=== PATIENT | female | born 1990 ===

== ENCOUNTER 2021-07-25 13:48 | Emergency (ER) | payer OTHER, SELFPAY ==
--- NOTE | ~2021-07-25 | XR_ITS ---
EXAMINATION: XR CHEST CLINICAL INFORMATION: Cough and wheezing COMPARISON: None TECHNIQUE: Frontal view of the chest was obtained. FINDINGS: No significant abnormality is noted involving the heart, lungs, mediastinum, bony thorax or soft tissues. XR/XR chest 1V IMPRESSION: Unremarkable chest examination.
[2021-07-25 14:17] VITALS: BP 121/70; PULSE 78; RESP 18; TEMP 36.8; O2SAT 98; BMI 21.4
--- NOTE | 2021-07-25 14:46 | ED.URI ---
HPI - URI/Sore Throat General Chief Complaint: Upper Respiratory Symptoms Stated Complaint: cough, chest wall pain, congestion Time Seen by Provider: 07/25/21 14:41 Source: patient Mode of arrival: ambulatory Limitations: no limitations History of Present Illness HPI Narrative: 31-year-old female with a past medical history of asthma here with complaints of runny nose, cough for 1 week. Patient tells me she is our primary care doctor yesterday and was prescribed a prednisone taper and Zyrtec. She tells me she took 1 dose of her prednisone this morning but felt like her symptoms were not improved as she came here today for further evaluation. She is not vaccinated for COVID. She has not had a test this week. She reports some chest wall pain with coughing. No shortness of breath, leg swelling or pain. No fevers, chills, abdominal pain, vomiting, diarrhea. Related Data Previous Rx's Medication Instructions Recorded azithromycin 250 mg tablet See Rx Instructions .ROUTE 07/25/21 .COMPLEX #6 tab Allergies Allergy/AdvReac Type Severity Reaction Status Date / Time shellfish derived Allergy Anaphylaxis Verified 07/25/21 14:21 Review of Systems Review of Systems: Yes all other systems are reviewed and are negative Constitutional: Constitutional: Reports no additional constitutional complaints, Denies body ache(s), Denies chills, Denies fever(s), Denies headache(s) and Denies weakness Eyes: Eyes: Reports no additional eye complaints and Denies change in vision ENT: Reports system reviewed and no additional complaints, except as documented, Denies dizziness, Denies headache(s), Denies nasal congestion, Reports nasal discharge and Denies neck pain Cardiovascular: Cardiovascular: Reports no additional cardiovascular complaints, Denies chest pain, Denies leg edema and Denies dyspnea Respiratory: Respiratory: Reports no additional respiratory complaints, Reports cough and Denies dyspnea Gastrointestinal: Gastrointestinal: Reports no additional gastrointestinal complaints, Denies abdominal pain, Denies diarrhea, Denies nausea and Denies vomiting Genitourinary: Genitourinary: Reports no additional female genitourinary complaints and Denies urinary incontinence Musculoskeletal: Musculoskeletal: Reports no additional musculoskeletal complaints, Denies back pain, Denies arthralgias, Denies joint swelling, Denies neck pain, Denies numbness and Denies tingling Integumentary/Breasts: Skin/Breast: Reports system reviewed and no additional complaints, except as docu and Denies rash Neurologic: Reports system reviewed and no additional complaints, except as documented, Denies Abnormal speech present, Denies dizziness, Denies headache(s), Denies numbness, Denies tingling and Denies weakness PMFSH Past Medical History Attestation statement: The following information was validated with the patient. Source: old records reviewed and nursing notes reviewed Social History Social History Advance Directives: No Physical Exam Vital Signs: Vital Signs: Last Vital Signs Temp 98.3 F 07/25/21 14:17 Pulse 78 07/25/21 14:17 Resp 18 07/25/21 14:17 BP 121/70 07/25/21 14:17 Pulse Ox 98 07/25/21 14:17 Body Mass Index 21.4 Const: General: cooperative, healthy appearing, comfortable and no acute distress Orientation/consciousness: patient oriented x3 Limitations: no limitations HENMT: Head: Yes normal to inspection Ears: hearing grossly normal bilaterally and TM's normal bilaterally General nose exam: Normal external nose present Face and sinus: Yes normal facial exam Mouth: Normal oral and palatal mucosa present Throat: Yes posterior oropharynx normal, Yes tonsils normal and Yes uvula midline Eyes: General: appearance normal, both eyes and all related structures Pupils: Equal, round and reactive pupils present Neck: Neck: Yes normal visual inspection Chest: Chest palpation & inspection: normal inspection of the chest Resp: Effort & Inspection: normal respiratory effort Auscultation: clear to auscultation bilaterally Cardio: Rate: regular rate Rhythm: regular rhythm Peripheral pulses: Peripheral pulses 2+ throughout GI: Inspection: Yes normal to inspection Palpation (GI): Soft to palpation and nontender Auscultation: normal bowel sounds Back/Spine/Pelvis: Thoracic/Lumbar Spine: thoracic and lumbar spine normal to inspection Skin: General skin exam: no rashes or lesions noted Neuro: General: patient oriented x3, no focal motor deficits and normal sensation to monofilament Cranial nerves: Yes Equal, round and reactive pupils present Cognition (Neuro): normal cognition Speech: No Abnormal speech present Gait exam (Neuro): Normal gait present Motor exam (neuro): 5/5 motor strength present throughout Extrem: General: Yes normal to inspection Course Course Course Narrative: URI symptoms x1 week. Patient well-appearing. Vital signs stable. WIll check COVID screen, CXR. 1530-COVID screen negative. Chest x-ray shows no acute finding. Patient tells me that she has had productive cough with green sputum for more than 1 week despite to using her inhaler and [id number] medications. Likely bronchitis. Will treat with course of antibiotics. Patient is on prednisone but just started this morning. Recommend she continue this. Reviewed worrisome signs and symptoms of when to return to the emergency department. Comfortable discharge home. MDM - URI/Sore Throat Medical Records Attestation: I reviewed the patient's medical records. Lab Data Attestation: I reviewed the patient's lab results. Labs: Lab Results 07/25/21 Range/Units 14:53 COVID-19 (LUDY) Negative (Negative) COVID-19 Clin Com See Note Imaging Data Chest x-ray: Attestation: I personally reviewed and interpreted this imaging study as follows: Radiologist's impression: [address] [address] XRay Report Signed Patient: Laxmi Hernandez MR#: [id number] : 1990 Acct:[id number] Age/Sex: 31 / F ADM Date: 07/25/21 Loc: .ED Attending Dr: Ordering Physician: Nina Flores NP Date of Service: 07/25/21 Procedure(s): XR chest 1V Accession Number(s): [id number] cc: Nina Flores NP~ EXAMINATION: XR CHEST CLINICAL INFORMATION: Cough and wheezing COMPARISON: None TECHNIQUE: Frontal view of the chest was obtained. FINDINGS: No significant abnormality is noted involving the heart, lungs, mediastinum, bony thorax or soft tissues. XR/XR chest 1V IMPRESSION: Unremarkable chest examination. ? Discharge Plan Discharge Clinical Impression: Bronchitis Patient Disposition: Home, Self-Care Instructions: Acute Bronchitis (ED) Additional Instructions: Continue your medications prescribed yesterday by her primary care doctor We are adding an antibiotic to this Increase fluids rest Continue inhaler at home as needed COVID test negative Prescriptions: New azithromycin 250 mg tablet See Rx Instructions .ROUTE .COMPLEX Qty: 6 RF: 0 Referrals: Physician,Unknown J [Primary Care Provider] - 2 days Stand Alone Forms: Work/School Release
[2021-07-25 15:19] LABS: IDNOW Serial# 9DD0AD1C
[2021-07-25 15:20] LABS: COVID-19 Test Negative (Negative)
== END 2021-07-25 15:33 | disposition home or self-care (01) ==
PROVIDERS: Nurse Practitioner Family; Emergency Provider Emergency Medicine Emergency Medical Services
DX: J40 Bronchitis, not specified as acute or chronic (principal); J45.909 Unspecified asthma, uncomplicated; Z20.822 Contact with and (suspected) exposure to COVID-19
CPT/HCPCS: 36415; 71045; 87635; 99283

== ENCOUNTER 2023-03-18 10:22 | Emergency (ER) | payer OTHER, SELFPAY ==
--- NOTE | ~2023-03-18 | XR_ITS ---
EXAMINATION: XR CHEST CLINICAL INFORMATION: Chest pain. COMPARISON: 07/25/2021 chest radiograph. TECHNIQUE: 2 views of the chest were obtained. FINDINGS: No significant abnormality is noted involving the heart, lungs, mediastinum, bony thorax or soft tissues. XR/XR chest 2V IMPRESSION: No acute cardiopulmonary process.
--- NOTE | ~2023-03-18 | US_ITS ---
EXAMINATION: US VENOUS ULTRASOUND WITH DOPPLER LOWER EXTREMITY, LEFT CLINICAL INFORMATION: Left leg pain. COMPARISON: None available. TECHNIQUE: Ultrasound of the deep veins is performed from the hip to the calf with compression sonography and color and pulse Doppler assessment. Spectral analysis with color-flow imaging is performed. FINDINGS: There is normal venous compression and respiratory variation and augmented flow. The visualized common femoral vein, superficial femoral vein, profunda femoral vein, popliteal vein, and the trifurcation region shows no evidence of deep venous thrombosis. No left popliteal cyst. The subcutaneous soft tissues are unremarkable. US/US venous duplex LE LT IMPRESSION: No evidence for deep venous thrombosis in the visualized veins of the left lower extremity.
[2023-03-18 11:13] VITALS: BP 127/82; PULSE 71; RESP 18; TEMP 36.7; O2SAT 100; BMI 37.8
--- NOTE | 2023-03-18 11:13 | ED_ITS ---
HPI - General Adult General Chief complaint: General Medical Stated complaint: l leg pain chest pain Time Seen by Provider: 03/18/23 13:58 History of Present Illness HPI narrative: Patient complains of short seconds long bursts of pain in the right chest wall that hurts when she touches it or moves certain ways, there is no accompanying shortness of breath, not related to exertion no nausea no vomiting no diaphoresis no radiation of pain She also complains of some left leg tingling and mild pain, there is no injury to the leg, the pain is in back of the leg, there is no back pain, no radiating pain she denies any redness or warmth, she has had no fevers No headache no neck pain no abdominal pain no nausea vomiting or diarrhea no swelling of the legs Related Data Previous Rx's Medication Instructions Recorded azithromycin 250 mg tablet See Rx Instructions PO .COMPLEX #6 07/25/21 tabs ibuprofen 600 mg tablet 600 mg PO Q6H PRN pain #20 tabs 03/18/23 prednisone 20 mg tablet 60 mg PO DAILY 3 days #9 tabs 03/18/23 Allergies Allergy/AdvReac Type Severity Reaction Status Date / Time shellfish derived Allergy Anaphylaxis Verified 07/25/21 14:21 [facility] Past Medical History Source: nursing notes reviewed Social History Social History Advance Directives: No Physical Exam ED Vital Signs: Vital Signs - 24 hr 03/18/23 11:13 03/18/23 14:24 Temperature 98.1 F 98.2 F Pulse Rate 71 66 Respiratory Rate 18 16 Blood Pressure 127/82 126/71 Pulse Oximetry 100 100 Oxygen Delivery Method Room Air BMI result Body Mass Index 37.8 General appearance is comfortable no acute distress Eyes no redness or discharge The pharynx is clear Neck is supple The chest is clear to auscultation bilateral full symmetric equal breath sounds Chest wall had very localized point tenderness to the right chest wall which reproduces the pain that she has been experienced, it can also be reproduced with movement The heart no murmur Abdomen soft nontender Extremities full range of motion x4 without tenderness swelling or deformity The left leg was normal in appearance, but there was tenderness to the calf and posterior thigh, the leg was normal color no evidence of cellulitis no redness no warmth no wound, neurovascular intact distal Other extremities normal Skin no rashes Neuro no focal motor sensory deficits Course Course Course Narrative: This is an RME: Additional HPI, ROS, PE not included below will be deferred to primary provider. This is a 53-gwpy-fdf-female, with a past medical history of asthma, with complaints of left leg pain and chest pain x 3 days. Reports bursts of sharp right sided chest pain that lasts for seconds and occurs at random. No palpit ations or shortness of breath. Was told she has plaque in her left leg at [facility] 3 months ago. No recent travels, hx of blood clots. Had kidney stone stent placement last month. Left calf nonedematous, but has mild tenderness to palpation. Also reproducible right sided chest wall tenderness. VSS, stable to return to the waiting room until treatment room becomes available. Plan: Labs, EKG, LE US, chest xray ordered. EKG was normal sinus rhythm with a rate of 64 with normal NC interval normal QRS duration normal QT, no acute ST changes Chest x-ray no acute pulmonary process Chemistry including a troponin was all negative troponin was under 2.7, no acute findings on CBC Ultrasound of left leg was negative Patient's presenting complaint of very localized right-sided chest wall pain and tenderness, pain is easily reproduced by pressing the area, the area is a very small area about 2 cm x 2 cm with focal tenderness but otherwise normal appearing skin there was no other tenderness in the chest wall there is no other pain that she describes she has no shortness of breath pain is not related to exertion, there is no pain with deep breath Tingling in her left leg is not accompanied by back pain or any radiating pain or any weakness or loss of sensation no change to bowel or bladder, may be from a pinched nerve so we are going to try prednisone, and she will take Motrin as needed for the chest wall pain Medications Administered Discontinued Medications Generic Name Dose Route Start Last Admin Trade Name Freq PRN Reason Stop Dose Admin Ibuprofen 600 mg 03/18/23 15:26 03/18/23 15:34 Ibuprofen 600 Mg Tablet PO 03/18/23 15:27 600 mg ONCE ONE Administration Prednisone 60 mg 03/18/23 15:26 03/18/23 15:34 Prednisone 20 Mg Tablet PO 03/18/23 15:27 60 mg ONCE ONE Administration Medical Decision Making Lab Data 03/18/23 11:36 03/18/23 11:36 Labs: Lab Results 03/18/23 03/18/23 03/18/23 Range/Units 11:36 11:36 11:36 WBC 10.3 (4.8-10.8) X10*3/uL RBC 4.59 (4.20-5.50) X10*6/uL Hgb 12.9 (12.0-16.0) g/dl Hct 40.3 (37.0-47.0) % MCV 87.8 (80.0-98.0) fL MCH 28.1 (27.0-33.0) pg MCHC 32.0 (31.0-35.0) g/dl RDW 13.1 (11.0-16.0) % Plt Count 290 (160-400) X10*3/uL MPV 10.4 (9.4-12.3) fL Immature Gran % (Auto) 0.5 H (0.0-0.4) % Neut % (Auto) 73.0 (45-73) % Lymph % (Auto) 19.7 L (20-40) % Carlton % (Auto) 4.4 (2-11) % Eos % (Auto) 2.0 (0-4) % Baso % (Auto) 0.4 (0-2) % Lymph # (Auto) 2.0 (1.2-4.9) X10*3/uL Carlton # (Auto) 0.5 (0.1-1.2) X10*3/uL Eos # (Auto) 0.2 (0.0-0.4) X10*3/uL Baso # (Auto) 0.0 (0.0-0.2) X10*3/uL Abs Immat Gran (auto) 0.05 H (0.00-0.03) X10*3/uL Absolute Neuts (auto) 7.5 (2.0-8.3) x10*3/uL Absolute Nucleated RBC 0.000 (0.0-0.012) X10*3/uL Nucleated RBC % (auto) 0.0 (0.0-0.2) /100WBC Sodium 138 (135-145) mmol/L Potassium 4.3 (3.3-5.1) mmol/L Chloride 106 (96-108) mmol/L Carbon Dioxide 26 (22-29) mmol/L Anion Gap 10 L (12-20) BUN 9 (9-16) mg/dL Creatinine 0.77 (0.5-1.4) mg/dL Estim Creat Clear Calc 122.7 Estimated GFR > 60 Random Glucose 97 (60-115) mg/dL Calcium 9.5 (8.4-10.2) mg/dL Magnesium 1.9 (1.6-2.6) mg/dL Total Bilirubin 0.4 (0.0-1.0) mg/dL Direct Bilirubin 0.1 (0.0-0.5) mg/dL AST 22 (5-31) U/L ALT 35 H (0-31) U/L Alkaline Phosphatase 75 (39-117) U/L Troponin I High Sens < 2.7 (<3.5-17.0) ng/L Total Protein 7.1 (6.5-8.0) g/dL Albumin 4.0 (3.5-5.0) g/dL Lipase 23 (8-78) U/L Discharge Plan Discharge Clinical Impression: Chest wall pain, Left leg pain Patient Disposition: Home, Self-Care Additional Instructions: The a sharp stinging pain that comes for a few seconds in a small area of the right side of her chest is not likely to be from her heart or lungs it does not appear to be dangerous or serious It is likely and inflammation of soft tissue or cartilage in the area Chest x-ray was normal, EKG was normal no sign of any heart attack Blood tests did not have any acute or worrisome findings Ultrasound of the left leg was normal As you are having some tingling in the leg as well as the discomfort we are trying prednisone with sometimes relieves inflammation around the nerve Follow with your doctor Return any time for shortness of breath, any change or worse chest pain any worse condition or any concerns Prescriptions: New ibuprofen 600 mg tablet 600 mg PO Q6H PRN (Reason: pain) Qty: 20 0RF prednisone 20 mg tablet 60 mg PO DAILY 3 Days Qty: 9 0RF No Action azithromycin 250 mg tablet See Rx Instructions .ROUTE .COMPLEX Qty: 6 0RF Rx Instructions: take 500 mg today (day 1), then 250 mg for 4 days (days 2-5) Stand Alone Forms: Work/School Release Interventions: ED Discharge Assessment Last Done: 03/18/23 15:37 Discharge Date/Time: 03/18/23 15:37
--- NOTE | 2023-03-18 11:20 | ECG_ITS ---
Test Reason : cp Blood Pressure : / mmHG Vent. Rate : 064 BPM Atrial Rate : 064 BPM P-R Int : 136 ms QRS Dur : 076 ms QT Int : 420 ms P-R-T Axes : 060 028 010 degrees QTc Int : 433 ms Normal sinus rhythm Normal ECG No previous ECGs available Referred By: Ondina Rose Electronically Signed By:ROWENA SHERIFF MD
[2023-03-18 11:41] LABS: MANUAL DIFF FLAG NO
[2023-03-18 11:44] LABS: Basophils Percent Auto 0.4 % (0-2); Eosinophils Absolute Auto 0.2 X10*3/uL (0.0-0.4); Hematocrit 40.3 % (37.0-47.0); Hemoglobin 12.9 g/dl (12.0-16.0); Imm Gran Abs Auto 0.05 X10*3/uL (0.00-0.03); Imm Gran Pct Auto 0.5 % (0.0-0.4); Lymphocytes Percent Auto 19.7 % (20-40); Mean Corpuscular Hemoglobin 28.1 pg (27.0-33.0); Mean Corpuscular Volume 87.8 fL (80.0-98.0); Mean Platelet Volume 10.4 fL (9.4-12.3); Monocytes Absolute Auto 0.5 X10*3/uL (0.1-1.2); Monocytes Percent Auto 4.4 % (2-11); Neutrophils Absolute Auto 7.5 x10*3/uL (2.0-8.3); Platelet Count 290 X10*3/uL (160-400); Red Blood Count 4.59 X10*6/uL (4.20-5.50); Red Cell Distribution Width 13.1 % (11.0-16.0); White Blood Count 10.3 X10*3/uL (4.8-10.8)
[2023-03-18 12:11] LABS: Alanine Aminotransferase 35 U/L (0-31); Alkaline Phosphatase 75 U/L (39-117); Anion Gap 10 (12-20); Aspartate Amino Transferase 22 U/L (5-31); Bilirubin Direct 0.1 mg/dL (0.0-0.5); Bilirubin Total 0.4 mg/dL (0.0-1.0); Blood Urea Nitrogen 9 mg/dL (9-16); Calcium 9.5 mg/dL (8.4-10.2); Carbon Dioxide 26 mmol/L (22-29); Chloride 106 mmol/L (96-108); Creatinine Clr Calc Pharmacy 122.7; Estimated Glomerular Filt Rate > 60; Glucose Random 97 mg/dL (60-115); Lipase 23 U/L (8-78); Magnesium 1.9 mg/dL (1.6-2.6); Potassium 4.3 mmol/L (3.3-5.1); Sodium 138 mmol/L (135-145); Total Protein 7.1 g/dL (6.5-8.0)
[2023-03-18 12:17] LABS: Troponin-I High Sensitivity < 2.7 ng/L (<3.5-17.0)
[2023-03-18 14:24] VITALS: BP 126/71; PULSE 66; RESP 16; TEMP 36.8; O2SAT 100
[2023-03-18] MEDS: Ibuprofen 600 MG TABLET PO (15:34)
[2023-03-18] MEDS: predniSONE 20 MG TABLET 60 MG PO (15:34)
== END 2023-03-18 15:37 | disposition home or self-care (01) ==
PROVIDERS: Physician Assistant Medical; Emergency Provider Emergency Medicine Emergency Medical Services
DX: M79.605 Pain in left leg (principal); R07.89 Other chest pain; R60.0 Localized edema; Z79.899 Other long term (current) drug therapy
CPT/HCPCS: 36415; 71046; 80048; 80076; 83690; 83735; 84484; 85025; 93005; 93971; 99284

== ENCOUNTER 2023-05-20 18:27 | Emergency (ER) | payer OTHER, SELFPAY ==
[2023-05-20 18:45] VITALS: BP 133/75; PULSE 80; RESP 16; TEMP 36; O2SAT 100; BMI 37.0
--- NOTE | 2023-05-20 18:45 | ED_ITS ---
HPI - General Adult General Chief complaint: Skin/Abscess/Foreign Body Stated complaint: insect bite Time Seen by Provider: 05/20/23 18:50 Source: patient Mode of arrival: ambulatory Limitations: no limitations History of Present Illness HPI narrative: Patient is a 32-year-old female presenting to the emergency department with complaint of pain and swelling under left upper arm since Wednesday morning. States symptoms have worsened since. Pain and erythema are extending down left arm. Denies spread of erythema proximally. Denies fevers. Has tried icing it with little relief. MD complaint: left arm pain Onset (ago): day(s) Location: left and upper extremity Radiation: distal Severity: moderate Quality: burning Pain Consistency: constant Relieving factors: none Exacerbating factors: none Associated symptoms: denies other symptoms Treatments prior to arrival: cold therapy Related Data Previous Rx's Medication Instructions Recorded azithromycin 250 mg tablet See Rx Instructions PO .COMPLEX #6 07/25/21 tabs ibuprofen 600 mg tablet 600 mg PO Q6H PRN pain #20 tabs 03/18/23 prednisone 20 mg tablet 60 mg PO DAILY 3 days #9 tabs 03/18/23 cephalexin 500 mg capsule 500 mg PO QID #28 caps 05/20/23 Allergies Allergy/AdvReac Type Severity Reaction Status Date / Time shellfish derived Allergy Anaphylaxis Verified 05/20/23 18:45 Review of Systems Review of Systems: As per HPI. Yes all other systems are reviewed and are negative Constitutional: Constitutional: Reports as per HPI [facility] Social History Social History Advance Directives: No Advance Directives Information Provided: No Physical Exam ED Vital Signs: Vital Signs - 24 hr 05/20/23 18:45 Temperature 96.8 F Pulse Rate 80 Respiratory Rate 16 Blood Pressure 133/75 Pulse Oximetry 100 Oxygen Delivery Method Room Air BMI result Body Mass Index 37.0 Vital signs have been reviewed and appear to be correct. Blood pressure normal. Heart rate normal. Respiratory rate normal. Temperature normal. Oxygen saturation normal. Const General: cooperative, healthy appearing and no acute distress Orientation/consciousness: oriented to person, oriented to place, oriented to time and patient oriented x3 Limitations: no limitations HENMT Head: Yes normocephalic and Yes atraumatic Ears: external ears normal General nose exam: Normal external nose present Face and sinus: Yes face symmetric Mouth: oropharynx normal and moist mucous membranes Throat: Yes uvula midline Eyes Pupils: Equal, round and reactive pupils present Neck Neck: Yes normal visual inspection and Yes supple Resp Effort & Inspection: normal respiratory effort and able to speak in complete sentences Auscultation: clear to auscultation bilaterally Cardio Rate: regular rate Rhythm: regular rhythm Heart sounds: S1 normal heart sound present and S2 normal heart sound present GI Palpation (GI): Soft to palpation and nontender Auscultation: normoactive bowel sounds General: Yes no CVA tenderness Back/Spine/Pelvis Back: no CVA tenderness Skin General skin exam: elasticity normal and turgor normal Neuro General: oriented to person, oriented to place, oriented to time, patient oriented x3, moves all extremities, no focal motor deficits and CN's II-XI intact bilaterally Cranial nerves: Yes Equal, round and reactive pupils present Cognition (Neuro): normal cognition Extrem General: Yes full ROM, Yes no pedal edema and Yes no calf tenderness Left upper extremity: full ROM, normal capillary refill and shoulder/upper arm Details: abnormal to inspection Details: other (erythema), tenderness (dorsal aspect of upper arm) Location: other, normal ROM and warmth (dorsal left upper arm) Shoulder/upper arm images: 1. Erythema and warmth, no fluctuance or induration Psych Mental Status: mental status grossly normal Affect: normal affect Thought process: Normal thought process present Medical Decision Making Medical Decision Making MDM Narrative: Patient is a 32-year-old female presenting to the emergency department with complaint of pain and swelling under left upper arm since Wednesday morning. On exam patient is awake, A+Ox3, VS WNL, afebrile, normal neurological exam without focal deficits, erythema and warmth to dorsal/medial aspect of left upper arm, no induration or fluctuance. Given reported symptoms and physical exam findings, initial differential includes cellulitis, abscess, insect bite. No bullae, rapid progression, pain out of proportion concerning for necrotizing fasciitis, unlikely DRESS, TEN/SJS. Physical exam findings not consistent with erythema migrans. Will treat with cephalexin at this time as patient denies history of MRSA, does not have risk factors for MRSA. Patient declined outlining of erythema, instructed patient to return if erythema spreads especially proximally, or if she develops worsening pain, swelling, or fever. Instructed patient to follow up with PCP. Patient verbalized understanding of and agreement with plan. Differential Diagnosis Differential Diagnoses: The differential diagnosis associated with the presentation includes As per MDM. Admission/Observation Consideration of admission/observation: Escalation of care including admission/observation considered External Record Review External record reviewed: Inpatient record, Office record and Outpatient record Prescription Management I considered prescription management with: Antibiotic (cephalexin) Discharge Plan Discharge Clinical Impression: Cellulitis Qualifiers: Site of cellulitis: extremity Site of cellulitis of extremity: upper extremity Laterality: left Qualified Code(s): L03.114 - Cellulitis of left upper limb Patient Disposition: Home, Self-Care Instructions: Cellulitis (DC), Warm Compress or Soak (ED) Additional Instructions: You have been evaluated in the emergency department today for skin infection, also known as cellulitis. You should assess the area daily for worsening redness, especially redness spreading towards your chest or back. You can soak your arm in warm water with Epsom salt several times daily or apply warm compresses. Please take your prescribed antibiotics as directed for the full course of the medication. You can use Tylenol or ibuprofen per package instructions every 6 hours as needed for pain. If necessary, you can alternate these medications so that you can take one medication every 3 hours. For instance, at noon take ibuprofen, then at 3:00 p.m. take Tylenol, then at 6:00 p.m. take ibuprofen. Please schedule an appointment for follow-up with your primary care physician as soon as possible. Return to the emergency department if you experience recurrent vomiting, fevers greater than 100.4? F, increasing area of redness, warmth around the area, foul-smelling discharge from the area, increased tenderness around the area, or any other concerning symptoms. Prescriptions: New cephalexin 500 mg capsule 500 mg PO QID Qty: 28 0RF No Action azithromycin 250 mg tablet See Rx Instructions .ROUTE .COMPLEX Qty: 6 0RF Rx Instructions: take 500 mg today (day 1), then 250 mg for 4 days (days 2-5) ibuprofen 600 mg tablet 600 mg PO Q6H PRN (Reason: pain) Qty: 20 0RF prednisone 20 mg tablet 60 mg PO DAILY 3 Days Qty: 9 0RF
== END 2023-05-20 19:05 | disposition home or self-care (01) ==
PROVIDERS: Emergency Provider Internal Medicine
DX: L03.114 Cellulitis of left upper limb (principal)
CPT/HCPCS: 99282; 99283

== ENCOUNTER 2023-07-19 06:31 | Emergency (ER) | payer OTHER, SELFPAY ==
--- NOTE | 2023-07-19 | ECG_ITS ---
Test Reason : CHEST PAIN Blood Pressure : / mmHG Vent. Rate : 058 BPM Atrial Rate : 058 BPM P-R Int : 144 ms QRS Dur : 072 ms QT Int : 430 ms P-R-T Axes : 054 024 -02 degrees QTc Int : 422 ms Sinus bradycardia Otherwise normal ECG When compared with ECG of 18-MAR-2023 11:28, No significant change was found Referred By: Generic ED Physician Electronically Signed By:KELLIE JORDAN
--- NOTE | ~2023-07-19 | XR_ITS ---
EXAMINATION: XR LUMBOSACRAL SPINE CLINICAL INFORMATION: Low back pain. COMPARISON: None available. TECHNIQUE: Three views of the lumbosacral spine. FINDINGS: There are 5 nonrib-bearing lumbar vertebral bodies. Relative straightening of the lumbar lordosis on the sagittal view. There is 2 mm retrolisthesis of L5 on S1. Vertebral body heights and intervertebral disc spaces are maintained. Sacroiliac joints are intact. XR/XR lumbar spine 2-3V IMPRESSION: No acute abnormality.
[2023-07-19 06:41] VITALS: BP 126/70; PULSE 59; RESP 16; TEMP 36.7; O2SAT 98; BMI 37.7
[2023-07-19 07:30] VITALS: BP 108/65; PULSE 67; RESP 17; TEMP 37.2; O2SAT 99
[2023-07-19 07:42] LABS: MANUAL DIFF FLAG NO
[2023-07-19 07:44] LABS: Basophils Percent Auto 0.4 % (0-2); Eosinophils Absolute Auto 0.2 X10*3/uL (0.0-0.4); Eosinophils Percent Auto 2.1 % (0-4); Hematocrit 41.1 % (37.0-47.0); Hemoglobin 13.4 g/dl (12.0-16.0); Imm Gran Abs Auto 0.02 X10*3/uL (0.00-0.03); Imm Gran Pct Auto 0.2 % (0.0-0.4); Lymphocytes Absolute Auto 2.2 X10*3/uL (1.2-4.9); Lymphocytes Percent Auto 22.7 % (20-40); Mean Corpuscular HGB Conc 32.6 g/dl (31.0-35.0); Mean Corpuscular Hemoglobin 28.7 pg (27.0-33.0); Mean Platelet Volume 10.8 fL (9.4-12.3); Monocytes Absolute Auto 0.5 X10*3/uL (0.1-1.2); Monocytes Percent Auto 4.7 % (2-11); Neutrophils Absolute Auto 6.8 x10*3/uL (2.0-8.3); Neutrophils Percent Auto 69.9 % (45-73); Platelet Count 261 X10*3/uL (160-400); Red Blood Count 4.67 X10*6/uL (4.20-5.50); Red Cell Distribution Width 12.7 % (11.0-16.0); White Blood Count 9.7 X10*3/uL (4.8-10.8)
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
[2023-07-19 07:58] LABS: Alanine Aminotransferase 21 U/L (0-31); Albumin Level 4.1 g/dL (3.5-5.0); Alkaline Phosphatase 66 U/L (39-117); Anion Gap 9 (12-20); Aspartate Amino Transferase 17 U/L (5-31); Bilirubin Direct 0.1 mg/dL (0.0-0.5); Bilirubin Total 0.3 mg/dL (0.0-1.0); Blood Urea Nitrogen 16 mg/dL (9-16); Calcium 9.5 mg/dL (8.4-10.2); Carbon Dioxide 25 mmol/L (22-29); Chloride 109 mmol/L (96-108); Creatinine Clr Calc Pharmacy 103.9; Estimated Glomerular Filt Rate > 60; Glucose Random 91 mg/dL (60-115); Lipase 34 U/L (8-78); Potassium 4.4 mmol/L (3.3-5.1); Sodium 139 mmol/L (135-145); Total Protein 7.3 g/dL (6.5-8.0)
[2023-07-19 08:06] LABS: Troponin-I High Sensitivity < 2.7 ng/L (<3.5-17.0)
[2023-07-19] MEDS: Ondansetron ODT 4 MG TAB.RAPDIS TRANSLINGU (08:40)
[2023-07-19] MEDS: Cyclobenzaprine HCl 10 MG TABLET PO (08:40)
[2023-07-19] MEDS: PHENobarb/Hyoscy/Atropine/Scop 10 ML ELIXIR PO (08:40)
[2023-07-19] MEDS: Magnesium Hydrox/Alum Hydrox 30 ML ORAL.SUSP PO (08:40)
[2023-07-19] MEDS: Ketorolac Tromethamine 30 MG/ML VIAL IM (08:40)
[2023-07-19 08:43] VITALS: PULSE 64; RESP 19
[2023-07-19 09:18] LABS: Appearance Urine Clear; Color Urine Yellow; Glucose Urine UA Negative (Negative); Leukocyte Esterase Urine Trace (Negative); Nitrite Urine Negative (Negative); Specific Gravity - Urine 1.015 (1.005-1.025); UMIC TRIGGER UACC YES; Urine Blood Negative (Negative); Urine Ketones Negative (Negative); Urine Protein Negative (Neg-Trace)
[2023-07-19 09:21] LABS: Bacteria Urine Trace (None Seen); Hyaline Casts Urine 0-2 /LPF (0-2); RBC Urine 0-2 /HPF (0-2); UPreg QC Valid YES; Urine Pregnancy NEGATIVE (NEGATIVE); WBC Urine 0-5 /HPF (0-5)
[2023-07-19 09:29] LABS: Magnesium 2.1 mg/dL (1.6-2.6)
[2023-07-19 09:33] LABS: Prothrombin Time 12.2 SEC (11.1-13.3)
[2023-07-19 09:37] LABS: HCG Quantitative < 2 mIU/mL
[2023-07-19 09:56] LABS: D Dimer High Sensitivity < 150 NG/ML
== END 2023-07-19 10:59 | disposition home or self-care (01) ==
PROVIDERS: Physician Assistant Medical; Emergency Provider Emergency Medicine
DX: R07.89 Other chest pain (principal); M94.0 Chondrocostal junction syndrome [Tietze]; M54.50 Low back pain, unspecified; R06.02 Shortness of breath; R10.9 Unspecified abdominal pain; Z79.899 Other long term (current) drug therapy
CPT/HCPCS: 36415; 72100; 80048; 80076; 81001; 81025; 83690; 83735; 84484; 84702; 85025; 85379; 85610; 93005; 96372; 99284; J1885

== ENCOUNTER 2023-08-11 20:02 | Emergency (ER) | payer OTHER, SELFPAY ==
--- NOTE | ~2023-08-11 | XR_ITS ---
EXAMINATION: XR SHOULDER, LEFT CLINICAL INFORMATION: Shoulder pain COMPARISON: None available. TECHNIQUE: AP external rotation, Grashey, scapular Y, and axillary views of the left shoulder. FINDINGS: The bones and soft tissues are normal. No fracture. Glenohumeral and acromioclavicular alignment is anatomic with normal joint space. No abnormal soft tissue calcifications. XR/XR shoulder LT min 2V IMPRESSION: Unremarkable left shoulder exam.
[2023-08-11 20:27] VITALS: BP 127/65; PULSE 68; RESP 20; TEMP 37.1; O2SAT 98; BMI 37.8
--- NOTE | 2023-08-11 20:29 | ECG_ITS ---
Test Reason : SHOULDER PAIN Blood Pressure : / mmHG Vent. Rate : 064 BPM Atrial Rate : 064 BPM P-R Int : 134 ms QRS Dur : 088 ms QT Int : 434 ms P-R-T Axes : 031 023 004 degrees QTc Int : 447 ms Normal sinus rhythm Normal ECG When compared with ECG of 19-JUL-2023 06:36, No significant change was found Referred By: Aly Msoeley Electronically Signed By:JOS GARCIA MD
--- NOTE | 2023-08-11 20:35 | ED.GENADULT ---
HPI - General Adult General Chief complaint: Extremity Problem Stated complaint: left shoulder and arm pain x2 wks Time Seen by Provider: 08/12/23 00:12 Source: patient Mode of arrival: ambulatory Limitations: no limitations History of Present Illness HPI narrative: Patient complaining of left shoulder pain for last few days getting worse especially on lifting left arm above the head no known trauma also feeling some tingling numbness feeling in left forearm off and on no neck pain does have a history of carpal tunnel in both wrists Related Data Previous Rx's Medication Instructions Recorded azithromycin 250 mg tablet See Rx Instructions PO .COMPLEX #6 07/25/21 tabs ibuprofen 600 mg tablet 600 mg PO Q6H PRN pain #20 tabs 03/18/23 prednisone 20 mg tablet 60 mg (3 x 20 mg) PO DAILY 3 days 03/18/23 #9 tabs cephalexin 500 mg capsule 500 mg PO QID #28 caps 05/20/23 cyclobenzaprine 10 mg tablet 10 mg PO BEDTIME PRN muscle spasm 07/19/23 #10 tabs ketorolac 10 mg tablet 10 mg PO Q8H 5 days #15 tabs 07/19/23 lidocaine 5 % topical patch 1 patch topical DAILY #15 ea 07/19/23 (Lidoderm) cyclobenzaprine 10 mg tablet 10 mg PO Q8H #20 tabs 08/12/23 ibuprofen 600 mg tablet 600 mg PO Q6H PRN fever or pain 08/12/23 #30 tabs Allergies Allergy/AdvReac Type Severity Reaction Status Date / Time shellfish derived Allergy Anaphylaxis Verified 08/11/23 20:16 Review of Systems Review of Systems: Yes all other systems are reviewed and are negative [facility] Social History Social History Smoked in Last 30 Days: No Use of substances other than those prescribed or required for medical reasons: No Advance Directives: No Advance Directives Information Provided: Yes Patient : No Physical Exam ED Vital Signs: Vital Signs - 24 hr 08/11/23 20:27 08/11/23 22:55 Temperature 98.7 F Pulse Rate 68 66 Respiratory Rate 20 18 Blood Pressure 127/65 133/67 Pulse Oximetry 98 100 Oxygen Delivery Method Room Air Room Air BMI result Body Mass Index 37.8 Extrem Shoulder/upper arm images: 1. Tenderness left subacromial, increased pain on lifting left arm above 90 degrees no weakness neurovascular intact good range of movement Course Course Course Narrative: RME: 33 yold female presents to ED for left shoulder pain and arm pain for the past two weeks and hurts on movemeent. patient denies trauma. labs and EkG and shoulder xray ordered Medications Administered Discontinued Medications Generic Name Dose Route Start Last Admin Trade Name Yunior PRN Reason Stop Dose Admin Cyclobenzaprine HCl 10 mg 08/12/23 00:30 08/12/23 00:41 Cyclobenzaprine Hcl 10 Mg Tablet PO 08/12/23 00:31 Not Given ONCE ONE Tramadol HCl 50 mg 08/12/23 00:30 08/12/23 00:40 Tramadol Hcl 50 Mg Tablet PO 08/12/23 00:31 50 mg ONCE ONE Administration Medical Decision Making Medical Decision Making [facility] Narrative: Patient clinical left rotator cuff tendinitis x-ray negative for any fracture neurovascular intact discharge patient home on pain management and muscle relaxation Lab Data [facility] Lab Attestation statement: I reviewed the patient's lab results. 08/11/23 21:39 08/11/23 21:39 Labs: Lab Results 08/11/23 Range/Units 21:39 WBC 10.2 (4.8-10.8) X10*3/uL RBC 4.57 (4.20-5.50) X10*6/uL Hgb 13.0 (12.0-16.0) g/dl Hct 40.3 (37.0-47.0) % MCV 88.2 (80.0-98.0) fL MCH 28.4 (27.0-33.0) pg MCHC 32.3 (31.0-35.0) g/dl RDW 13.1 (11.0-16.0) % Plt Count 271 (160-400) X10*3/uL MPV 10.7 (9.4-12.3) fL Immature Gran % (Auto) 0.3 (0.0-0.4) % Neut % (Auto) 58.9 (45-73) % Lymph % (Auto) 32.1 (20-40) % [place] % (Auto) 5.8 (2-11) % Eos % (Auto) 2.5 (0-4) % Baso % (Auto) 0.4 (0-2) % Lymph # (Auto) 3.3 (1.2-4.9) X10*3/uL [place] # (Auto) 0.6 (0.1-1.2) X10*3/uL Eos # (Auto) 0.3 (0.0-0.4) X10*3/uL Baso # (Auto) 0.0 (0.0-0.2) X10*3/uL Abs Immat Gran (auto) 0.03 (0.00-0.03) X10*3/uL Absolute Neuts (auto) 6.0 (2.0-8.3) x10*3/uL Absolute Nucleated RBC 0.000 (0.0-0.012) X10*3/uL Nucleated RBC % (auto) 0.0 (0.0-0.2) /100WBC Sodium 140 (135-145) mmol/L Potassium 4.2 (3.3-5.1) mmol/L Chloride 106 (96-108) mmol/L Carbon Dioxide 26 (22-29) mmol/L Anion Gap 12 (12-20) BUN 10 (9-16) mg/dL Creatinine 0.79 (0.5-1.4) mg/dL Estim Creat Clear Calc 118.4 Estimated GFR > 60 Random Glucose 125 H (60-115) mg/dL Calcium 9.3 (8.4-10.2) mg/dL Total Bilirubin 0.2 (0.0-1.0) mg/dL AST 24 (5-31) U/L ALT 42 H (0-31) U/L Alkaline Phosphatase 69 (39-117) U/L Troponin I High Sens < 2.7 (<3.5-17.0) ng/L Total Protein 7.4 (6.5-8.0) g/dL Albumin 4.1 (3.5-5.0) g/dL Discharge Plan Discharge Clinical Impression: Tendinitis of left rotator cuff Patient Disposition: Home, Self-Care Instructions: Rotator Cuff Tendinitis (ED) Additional Instructions: Rest to your left shoulder Pain medication and muscle relaxant as prescribed Prescriptions: New cyclobenzaprine 10 mg tablet 10 mg PO Q8H Qty: 20 0RF ibuprofen 600 mg tablet 600 mg PO Q6H PRN (Reason: fever or pain) Qty: 30 0RF No Action azithromycin 250 mg tablet See Rx Instructions .ROUTE .COMPLEX Qty: 6 0RF Rx Instructions: take 500 mg today (day 1), then 250 mg for 4 days (days 2-5) cephalexin 500 mg capsule 500 mg PO QID Qty: 28 0RF ibuprofen 600 mg tablet 600 mg PO Q6H PRN (Reason: pain) Qty: 20 0RF prednisone 20 mg tablet 60 mg PO DAILY 3 Days Qty: 9 0RF lidocaine [Lidoderm] 5 % adhesive patch,medicated 1 patch topical DAILY Qty: 15 0RF Rx Instructions: leave on most painful area for up to 12 hrs cyclobenzaprine 10 mg tablet 10 mg PO BEDTIME PRN (Reason: muscle spasm) Qty: 10 0RF ketorolac 10 mg tablet 10 mg PO Q8H 5 Days Qty: 15 0RF Interventions: ED Discharge Assessment Last Done: 08/12/23 00:45 Discharge Date/Time: 08/12/23 00:45
[2023-08-11 21:47] LABS: MANUAL DIFF FLAG NO
[2023-08-11 21:48] LABS: Basophils Percent Auto 0.4 % (0-2); Eosinophils Absolute Auto 0.3 X10*3/uL (0.0-0.4); Eosinophils Percent Auto 2.5 % (0-4); Hematocrit 40.3 % (37.0-47.0); Imm Gran Abs Auto 0.03 X10*3/uL (0.00-0.03); Imm Gran Pct Auto 0.3 % (0.0-0.4); Lymphocytes Absolute Auto 3.3 X10*3/uL (1.2-4.9); Lymphocytes Percent Auto 32.1 % (20-40); Mean Corpuscular HGB Conc 32.3 g/dl (31.0-35.0); Mean Corpuscular Hemoglobin 28.4 pg (27.0-33.0); Mean Corpuscular Volume 88.2 fL (80.0-98.0); Mean Platelet Volume 10.7 fL (9.4-12.3); Monocytes Absolute Auto 0.6 X10*3/uL (0.1-1.2); Monocytes Percent Auto 5.8 % (2-11); Neutrophils Percent Auto 58.9 % (45-73); Platelet Count 271 X10*3/uL (160-400); Red Blood Count 4.57 X10*6/uL (4.20-5.50); Red Cell Distribution Width 13.1 % (11.0-16.0); White Blood Count 10.2 X10*3/uL (4.8-10.8)
[2023-08-11 22:55] VITALS: BP 133/67; PULSE 66; RESP 18; O2SAT 100
[2023-08-11 23:25] LABS: Alanine Aminotransferase 42 U/L (0-31); Albumin Level 4.1 g/dL (3.5-5.0); Alkaline Phosphatase 69 U/L (39-117); Anion Gap 12 (12-20); Aspartate Amino Transferase 24 U/L (5-31); Bilirubin Total 0.2 mg/dL (0.0-1.0); Blood Urea Nitrogen 10 mg/dL (9-16); Calcium 9.3 mg/dL (8.4-10.2); Carbon Dioxide 26 mmol/L (22-29); Chloride 106 mmol/L (96-108); Creatinine Clr Calc Pharmacy 118.4; Estimated Glomerular Filt Rate > 60; Glucose Random 125 mg/dL (60-115); Potassium 4.2 mmol/L (3.3-5.1); Sodium 140 mmol/L (135-145); Total Protein 7.4 g/dL (6.5-8.0); Troponin-I High Sensitivity < 2.7 ng/L (<3.5-17.0)
[2023-08-12] MEDS: traMADoL HCL 50 MG TABLET PO (00:40)
== END 2023-08-12 00:45 | disposition home or self-care (01) ==
PROVIDERS: Physician Assistant; Emergency Provider Internal Medicine
DX: M75.92 Shoulder lesion, unspecified, left shoulder (principal); M25.512 Pain in left shoulder
CPT/HCPCS: 36415; 73030; 80053; 84484; 85025; 93005; 99283; 99284

== ENCOUNTER 2023-11-18 07:43 | Emergency (ER) | payer OTHER, SELFPAY ==
--- NOTE | ~2023-11-18 | US_ITS ---
EXAMINATION: US ABDOMEN LIMITED CLINICAL INFORMATION: Right upper quadrant pain. COMPARISON: None available. TECHNIQUE: Real-time imaging of the right upper quadrant abdominal viscera. Needs examination is limited secondary to overlying bowel gas. FINDINGS: PANCREAS: Visualized portions of pancreas are normal in appearance. LIVER: The liver is normal in size. The liver contour is normal. Liver echogenicity is increased diffusely. Some areas of decreased echogenicity adjacent to the gallbladder are nonspecific but most suggestive of regions of focal fatty sparing. There is no intrahepatic biliary duct dilatation seen. GALLBLADDER: The gallbladder is physiologically distended without evidence of stones, sludge, polyps, wall thickening or pericholecystic fluid. Technologist however reports a positive sonographic Peterson's sign. COMMON BILE DUCT: Normal in caliber measuring 0.3 cm in diameter. RIGHT KIDNEY: Normal. No hydronephrosis. No renal calculi or focal parenchymal lesions. The kidney measures 10.8 cm in maximum dimension. FREE FLUID: None. US/US abdomen limited IMPRESSION: 1. Diffusely increased liver echogenicity. This is a nonspecific finding but most suggestive of hepatic steatosis. Correlation with liver enzymes recommended. 2. The gallbladder is normal in appearance without gallstones, however, the technologist reports a positive sonographic Peterson's sign. Clinical correlation recommended.
--- NOTE | ~2023-11-18 | XR_ITS ---
EXAMINATION: XR CHEST CLINICAL INFORMATION: Chest pain COMPARISON: Chest x-ray March 18, 2023 TECHNIQUE: 2 views of the chest were obtained. FINDINGS: Cardiac silhouette is normal in size. The lungs are well aerated. There is no lobar consolidation. No pleural effusion or pneumothorax. No acute osseous abnormality. XR/XR chest 2V IMPRESSION: No acute pulmonary pathology.
[2023-11-18 07:47] VITALS: BP 129/62; PULSE 69; RESP 18; TEMP 36.9; O2SAT 95; BMI 37.8
--- NOTE | 2023-11-18 09:25 | ECG_ITS ---
Test Reason : chest pain Blood Pressure : / mmHG Vent. Rate : 063 BPM Atrial Rate : 063 BPM P-R Int : 130 ms QRS Dur : 074 ms QT Int : 428 ms P-R-T Axes : 024 017 -01 degrees QTc Int : 437 ms Normal sinus rhythm Normal ECG When compared to the previous EKG of No significant changes seen Referred By: Ondina Rose Electronically Signed By:ROWENA SHERIFF MD
--- NOTE | 2023-11-18 09:25 | ED.GENADULT ---
HPI - General Adult General Chief complaint: General Medical Stated complaint: Acid reflux Time Seen by Provider: 11/18/23 09:01 Source: patient and RN notes reviewed Mode of arrival: ambulatory Limitations: no limitations History of Present Illness HPI narrative: This is a 33-year-old female, with a past medical history of GERD, nephrolithiasis, and PCOS, presenting to the emergency department with complaints of ?severe acid reflux x2 days. Patient reports that over the last 2 days she has had constant burning sensation in her chest. She states that she has a history of acid reflux and this feels similar. She states that this is the most severe acid reflux she has had. She states that the pain has woken her up in the middle of the night. She has been taking omeprazole, which she took a week off from without any relief. She also has tried [id number] antacids which has not provided her with any relief. She denies any fevers, chills, nausea, vomiting or diarrhea. She also endorses diffuse abdominal pain, worse in the epigastrium. Patient also reports that she has urinary frequency, states that several days ago she had leftover antibiotics which she was taking, so reporting urinary urgency. Denies dysuria, hematuria. MD complaint: Acid reflux Onset (ago): day(s) Quality: burning Pain Consistency: constant Relieving factors: none Exacerbating factors: none Associated symptoms: denies other symptoms Treatments prior to arrival: none Related Data Previous Rx's Medication Instructions Recorded azithromycin 250 mg tablet See Rx Instructions PO .COMPLEX #6 07/25/21 tabs ibuprofen 600 mg tablet 600 mg PO Q6H PRN pain #20 tabs 03/18/23 prednisone 20 mg tablet 60 mg (3 x 20 mg) PO DAILY 3 days 03/18/23 #9 tabs cephalexin 500 mg capsule 500 mg PO QID #28 caps 05/20/23 cyclobenzaprine 10 mg tablet 10 mg PO BEDTIME PRN muscle spasm 07/19/23 #10 tabs ketorolac 10 mg tablet 10 mg PO Q8H 5 days #15 tabs 07/19/23 lidocaine 5 % topical patch 1 patch topical DAILY #15 ea 07/19/23 (Lidoderm) cyclobenzaprine 10 mg tablet 10 mg PO Q8H #20 tabs 08/12/23 ibuprofen 600 mg tablet 600 mg PO Q6H PRN fever or pain 08/12/23 #30 tabs aluminum-mag hydroxide-simethicone 10 ml PO QID PRN indigestion 11/18/23 200 mg-200 mg-20 mg/5 mL oral susp #3,000 mL (Maalox Advanced) Allergies Allergy/AdvReac Type Severity Reaction Status Date / Time shellfish derived Allergy Anaphylaxis Verified 08/11/23 20:16 Review of Systems Review of Systems: Yes all other systems are reviewed and are negative Constitutional: Constitutional: Reports as per HPI Physical Exam ED Vital Signs: Vital Signs - 24 hr 11/18/23 07:47 11/18/23 10:00 11/18/23 14:36 Temperature 98.4 F 98.2 F Pulse Rate 69 60 73 Respiratory Rate 18 16 18 Blood Pressure 129/62 119/75 122/71 Pulse Oximetry 95 99 Oxygen Delivery Method Room Air Room Air BMI result Body Mass Index 37.8 Const General: cooperative, comfortable and no acute distress Orientation/consciousness: patient oriented x3 Limitations: no limitations HENMT Head: Yes normal to inspection, Yes normocephalic and Yes atraumatic Ears: hearing grossly normal bilaterally General nose exam: Normal external nose present Face and sinus: Yes normal facial exam Mouth: Normal oral and palatal mucosa present, oropharynx normal and moist mucous membranes Throat: Yes posterior oropharynx normal Eyes General: appearance normal, both eyes and all related structures Eyelids: Yes eyelids normal Conjunctivae: conjunctivae normal Sclerae: sclerae normal Pupils: Equal, round and reactive pupils present EOM: EOMs intact bilaterally Neck Neck: Yes normal visual inspection, Yes full ROM and Yes no lymphadenopathy Lymphatic: no lymphadenopathy noted Chest Chest palpation & inspection: normal inspection of the chest Resp Effort & Inspection: normal respiratory effort and able to speak in complete sentences Auscultation: clear to auscultation bilaterally, no crackles, no rales, no rhonchi and no wheezes Cardio Rate: regular rate Rhythm: regular rhythm Heart sounds: S1 normal heart sound present and S2 normal heart sound present GI Other: Abdomen is diffusely tender, worse in the epigastrium. No right upper quadrant pain, negative Peterson's sign Inspection: Yes normal to inspection Skin General skin exam: no rashes or lesions noted Trauma: no lacerations or abrasions Wounds: no wounds Neuro General: patient oriented x3 and moves all extremities Cranial nerves: Yes Equal, round and reactive pupils present Extrem General: Yes normal to inspection Right upper extremity: normal to inspection Left upper extremity: normal to inspection Right lower extremity: normal to inspection Left lower extremity: normal to inspection Course Reevaluation(s) Reevaluation #1: Chest x-ray unremarkable. No leukocytosis, stable H&H. Chemistry within normal limits. ALT slightly elevated at 38, otherwise unremarkable. Creatinine 0.75, no evidence of BRO as this is around her baseline. Urine appears to be normal, no evidence of infection. First troponin 2.7, does not require repeat as patient reports pain is constant over the last 2 days. Lipase within normal limits. Pending ultrasound of the right upper quadrant Time: 12:59 Reevaluation #2: US returns normal but renal dialysis technician observed a positive peterson's sign. This was not seen on my examination and pt's abdominal pain has resolved. Unlikely gall bladder etiology. D/c with return precautions. stable for d.c, Medications Administered Discontinued Medications Generic Name Dose Route Start Last Admin Trade Name Yunior PRN Reason Stop Dose Admin Acetaminophen 975 mg 11/18/23 14:45 11/18/23 15:10 Acetaminophen 325 Mg Tablet PO 11/18/23 14:46 975 mg ONCE ONE Administration Al Hydroxide/Mg Hydroxide 30 ml 11/18/23 09:25 11/18/23 10:27 Magnesium Hydrox/Alum Hydrox 30 Ml Oral.Susp PO 11/18/23 09:26 30 ml ONCE ONE Administration Belladonna Alkaloids/Phenobarbital 10 ml 11/18/23 09:25 11/18/23 10:27 Phenobarb/Hyoscy/Atropine/Scop 10 Ml Elixir PO 11/18/23 09:26 10 ml ONCE ONE Administration Lidocaine HCl 15 ml 11/18/23 09:25 11/18/23 10:27 Lidocaine Hcl Viscous 2 % 15 Ml Solution MUCOUS MEM 11/18/23 09:26 15 ml ONCE ONE Administration Medical Decision Making Medical Decision Making [facility] Narrative: This is a 33-year-old female presenting to the emergency department with complaints of worsening acid reflux x2 days. Patient admits that she has not been taking her omeprazole, she started taking this on Wednesday gone after having worsening acid. She has been using hemu-eih-dymabvz antacids without any relief. On arrival, patient is nontoxic appearing, vital signs within normal limits. Patient endorsing chest pain as well as pain. She has a GI specialist, last had endoscopy in September which was unremarkable per patient. Differential diagnoses include gastritis, GERD, ACS-unlikely, urinary tract infection. Been patient is symptomatic at this time, will attempt GI cocktail to see if this provides her with any relief. Ultrasound of the abdomen is also warranted given upper abdominal pain, to rule out any gallbladder etiology. She denies any shortness a breath, patient is PERC negative therefore PE is unlikely. Differential Diagnosis Differential Diagnoses: The differential diagnosis associated with the presentation includes See above Lab Data MDM Lab Attestation statement: I reviewed the patient's lab results. No leukocytosis, H&H stable,Chem WNL, UA unremarkable 11/18/23 10:22 11/18/23 10:22 Labs: Lab Results 11/18/23 11/18/23 Range/Units 10:22 12:29 WBC 9.3 (4.8-10.8) X10*3/uL RBC 4.63 (4.20-5.50) X10*6/uL Hgb 13.1 (12.0-16.0) g/dl Hct 40.5 (37.0-47.0) % MCV 87.5 (80.0-98.0) fL MCH 28.3 (27.0-33.0) pg MCHC 32.3 (31.0-35.0) g/dl RDW 12.9 (11.0-16.0) % Plt Count 308 (160-400) X10*3/uL MPV 10.6 (9.4-12.3) fL Immature Gran % (Auto) 0.2 (0.0-0.4) % Neut % (Auto) 67.7 (45-73) % Lymph % (Auto) 24.6 (20-40) % [place] % (Auto) 4.7 (2-11) % Eos % (Auto) 2.4 (0-4) % Baso % (Auto) 0.4 (0-2) % Lymph # (Auto) 2.3 (1.2-4.9) X10*3/uL [place] # (Auto) 0.4 (0.1-1.2) X10*3/uL Eos # (Auto) 0.2 (0.0-0.4) X10*3/uL Baso # (Auto) 0.0 (0.0-0.2) X10*3/uL Abs Immat Gran (auto) 0.02 (0.00-0.03) X10*3/uL Absolute Neuts (auto) 6.3 (2.0-8.3) x10*3/uL Absolute Nucleated RBC 0.000 (0.0-0.012) X10*3/uL Nucleated RBC % (auto) 0.0 (0.0-0.2) /100WBC Sodium 139 (135-145) mmol/L Potassium 4.5 (3.3-5.1) mmol/L Chloride 107 (96-108) mmol/L Carbon Dioxide 26 (22-29) mmol/L Anion Gap 11 L (12-20) BUN 12 (9-16) mg/dL Creatinine 0.75 (0.5-1.4) mg/dL Estim Creat Clear Calc 124.8 Estimated GFR > 60 Random Glucose 89 (60-115) mg/dL Calcium 9.4 (8.4-10.2) mg/dL Magnesium 2.2 (1.6-2.6) mg/dL Total Bilirubin 0.4 (0.0-1.0) mg/dL Direct Bilirubin 0.1 (0.0-0.5) mg/dL AST 21 (5-31) U/L ALT 38 H (0-31) U/L Alkaline Phosphatase 72 (39-117) U/L Troponin I High Sens < 2.7 (<3.5-17.0) ng/L Total Protein 7.4 (6.5-8.0) g/dL Albumin 4.0 (3.5-5.0) g/dL Lipase 24 (8-78) U/L Beta HCG, Quant < 2 mIU/mL Urine Color Yellow Urine Appearance Clear Urine pH 8.0 (5.0-9.0) Ur Specific [place] 1.020 (1.005-1.025) Urine Protein Negative (Neg-Trace) mg/dL Urine Glucose (UA) Negative (Negative) mg/dL Urine Ketones Negative (Negative) mg/dL Urine Blood Negative (Negative) Urine Nitrite Negative (Negative) Ur Leukocyte Esterase Negative (Negative) Independent Interpretation I performed an independent interpretation of an: EKG Interpretation: EKG NSR at a ventricular rate of 63 bpm, no ST elevation or depression, QTC 437, no st elevation or depression, Radiology Impression Discussion of test interpretation with radiology: I have reviewed the radiologist's reading. Radiologist Impression: EXAMINATION: US ABDOMEN LIMITED CLINICAL INFORMATION: Right upper quadrant pain. COMPARISON: None available. TECHNIQUE: Real-time imaging of the right upper quadrant abdominal viscera. Needs examination is limited secondary to overlying bowel gas. FINDINGS: PANCREAS: Visualized portions of pancreas are normal in appearance. LIVER: The liver is normal in size. The liver contour is normal. Liver echogenicity is increased diffusely. Some areas of decreased echogenicity adjacent to the gallbladder are nonspecific but most suggestive of regions of focal fatty sparing. There is no intrahepatic biliary duct dilatation seen. GALLBLADDER: The gallbladder is physiologically distended without evidence of stones, sludge, polyps, wall thickening or pericholecystic fluid. Technologist however reports a positive sonographic Peterson's sign. COMMON BILE DUCT: Normal in caliber measuring 0.3 cm in diameter. RIGHT KIDNEY: Normal. No hydronephrosis. No renal calculi or focal parenchymal lesions. The kidney measures 10.8 cm in maximum dimension. FREE FLUID: None. US/US abdomen limited IMPRESSION: 1. Diffusely increased liver echogenicity. This is a nonspecific finding but most suggestive of hepatic steatosis. Correlation with liver enzymes recommended. 2. The gallbladder is normal in appearance without gallstones, however, the technologist reports a positive sonographic Peterson's sign. Clinical correlation recommended. Dictated By: Jac Wheatley MD Signed By: <Electronically humera COMPARISON: Chest x-ray March 18, 2023 TECHNIQUE: 2 views of the chest were obtained. FINDINGS: Cardiac silhouette is normal in size. The lungs are well aerated. There is no lobar consolidation. No pleural effusion or pneumothorax. No acute osseous abnormality. XR/XR chest 2V IMPRESSION: No acute pulmonary pathology. Dictated By: Jac Wheatley MD Discharge Plan Discharge Clinical Impression: Gastritis Patient Disposition: Home, Self-Care Instructions: Gastritis (ED), Diet for Stomach Ulcers and Gastritis (ED) Additional Instructions: Your seen in the emergency department due to acid reflux. Your symptoms improved after being medicated with a GI cocktail. Your labs are reassuring. Your urine does not appear to be infected. Your chest x-ray was normal. Your abdominal ultrasound does not reveal any abnormalities. Please continue taking omeprazole as directed as needed. Stick to a bland diet, avoid acidic, spicy, or fried foods as this will worsen her symptoms. Follow-up with the GI specialist as a should re-evaluate you given ongoing symptoms of GERD. If any new or worsening symptoms occur including but not limited to chest pain, shortness breast, please return for re-evaluation. Prescriptions: New alum-mag hydroxide-simeth [Maalox Advanced] 200-200-20 mg/5 mL suspension 10 ml PO QID PRN (Reason: indigestion) Qty: 3000 0RF Rx Instructions: administer between meals and at bedtime No Action azithromycin 250 mg tablet See Rx Instructions .ROUTE .COMPLEX Qty: 6 0RF Rx Instructions: take 500 mg today (day 1), then 250 mg for 4 days (days 2-5) cephalexin 500 mg capsule 500 mg PO QID Qty: 28 0RF cyclobenzaprine 10 mg tablet 10 mg PO Q8H Qty: 20 0RF ibuprofen 600 mg tablet 600 mg PO Q6H PRN (Reason: fever or pain) Qty: 30 0RF ibuprofen 600 mg tablet 600 mg PO Q6H PRN (Reason: pain) Qty: 20 0RF prednisone 20 mg tablet 60 mg PO DAILY 3 Days Qty: 9 0RF lidocaine [Lidoderm] 5 % adhesive patch,medicated 1 patch topical DAILY Qty: 15 0RF Rx Instructions: leave on most painful area for up to 12 hrs cyclobenzaprine 10 mg tablet 10 mg PO BEDTIME PRN (Reason: muscle spasm) Qty: 10 0RF ketorolac 10 mg tablet 10 mg PO Q8H 5 Days Qty: 15 0RF Referrals: [facility] [place] Gastroenterology Services [Provider Group] Stand Alone Forms: Work/School Release Interventions: ED Discharge Assessment Last Done: 11/18/23 15:12 Discharge Date/Time: 11/18/23 15:13
[2023-11-18 10:00] VITALS: BP 119/75; PULSE 60; RESP 16; TEMP 36.8; O2SAT 99
[2023-11-18] MEDS: PHENobarb/Hyoscy/Atropine/Scop 10 ML ELIXIR PO (10:27)
[2023-11-18] MEDS: Magnesium Hydrox/Alum Hydrox 30 ML ORAL.SUSP PO (10:27)
[2023-11-18] MEDS: Lidocaine HCl Viscous 2 % 15 ML SOLUTION MUCOUS MEM (10:27)
[2023-11-18 10:31] LABS: MANUAL DIFF FLAG NO
[2023-11-18 10:38] LABS: Basophils Percent Auto 0.4 % (0-2); Eosinophils Absolute Auto 0.2 X10*3/uL (0.0-0.4); Eosinophils Percent Auto 2.4 % (0-4); Hematocrit 40.5 % (37.0-47.0); Hemoglobin 13.1 g/dl (12.0-16.0); Imm Gran Abs Auto 0.02 X10*3/uL (0.00-0.03); Imm Gran Pct Auto 0.2 % (0.0-0.4); Lymphocytes Absolute Auto 2.3 X10*3/uL (1.2-4.9); Lymphocytes Percent Auto 24.6 % (20-40); Mean Corpuscular HGB Conc 32.3 g/dl (31.0-35.0); Mean Corpuscular Hemoglobin 28.3 pg (27.0-33.0); Mean Corpuscular Volume 87.5 fL (80.0-98.0); Mean Platelet Volume 10.6 fL (9.4-12.3); Monocytes Absolute Auto 0.4 X10*3/uL (0.1-1.2); Monocytes Percent Auto 4.7 % (2-11); Neutrophils Absolute Auto 6.3 x10*3/uL (2.0-8.3); Neutrophils Percent Auto 67.7 % (45-73); Platelet Count 308 X10*3/uL (160-400); Red Blood Count 4.63 X10*6/uL (4.20-5.50); Red Cell Distribution Width 12.9 % (11.0-16.0); White Blood Count 9.3 X10*3/uL (4.8-10.8)
[2023-11-18 10:50] LABS: Alanine Aminotransferase 38 U/L (0-31); Alkaline Phosphatase 72 U/L (39-117); Anion Gap 11 (12-20); Aspartate Amino Transferase 21 U/L (5-31); Bilirubin Direct 0.1 mg/dL (0.0-0.5); Bilirubin Total 0.4 mg/dL (0.0-1.0); Blood Urea Nitrogen 12 mg/dL (9-16); Calcium 9.4 mg/dL (8.4-10.2); Carbon Dioxide 26 mmol/L (22-29); Chloride 107 mmol/L (96-108); Creatinine Clr Calc Pharmacy 124.8; Estimated Glomerular Filt Rate > 60; Glucose Random 89 mg/dL (60-115); Lipase 24 U/L (8-78); Magnesium 2.2 mg/dL (1.6-2.6); Potassium 4.5 mmol/L (3.3-5.1); Sodium 139 mmol/L (135-145); Total Protein 7.4 g/dL (6.5-8.0)
[2023-11-18 10:57] LABS: HCG Quantitative < 2 mIU/mL; Troponin-I High Sensitivity < 2.7 ng/L (<3.5-17.0)
[2023-11-18 12:36] LABS: Appearance Urine Clear; Color Urine Yellow; Glucose Urine UA Negative (Negative); Leukocyte Esterase Urine Negative (Negative); Nitrite Urine Negative (Negative); Urine Blood Negative (Negative); Urine Ketones Negative (Negative); Urine Protein Negative (Neg-Trace)
[2023-11-18 14:36] VITALS: BP 122/71; PULSE 73; RESP 18
[2023-11-18] MEDS: Acetaminophen 325 MG TABLET 975 MG PO (15:10)
== END 2023-11-18 15:13 | disposition home or self-care (01) ==
PROVIDERS: Physician Assistant Medical; Emergency Provider Emergency Medicine
DX: K29.60 Other gastritis without bleeding (principal); K21.9 Gastro-esophageal reflux disease without esophagitis
CPT/HCPCS: 36415; 71046; 76705; 80048; 80076; 81003; 83690; 83735; 84484; 84702; 85025; 93005; 99284; 99285

== ENCOUNTER → 2023-11-18 09:25 | Outpatient (BNV) | payer OTHER, SELFPAY | PROVIDERS: Emergency Provider Emergency Medicine; Visit Provider Internal Medicine Cardiovascular Disease | DX: R07.9 Chest pain, unspecified (principal) | CPT/HCPCS: 93010 ==

== ENCOUNTER 2024-03-28 22:24 | Emergency (ER) | payer OTHER, SELFPAY ==
--- NOTE | 2024-03-28 | ECG_ITS ---
Test Reason : CP Blood Pressure : / mmHG Vent. Rate : 084 BPM Atrial Rate : 084 BPM P-R Int : 136 ms QRS Dur : 078 ms QT Int : 382 ms P-R-T Axes : 037 027 006 degrees QTc Int : 451 ms Normal sinus rhythm Normal ECG When compared with ECG of 18-NOV-2023 09:51, No significant change was found Referred By: Generic ED Physician Electronically Signed By:REDDY CONTRERAS
--- NOTE | ~2024-03-28 | XR_ITS ---
EXAMINATION: XR CHEST CLINICAL INFORMATION: Chest pain. Cough. COMPARISON: 11/18/2023. TECHNIQUE: Frontal view of the chest was obtained. FINDINGS: No significant abnormality is noted involving the heart, lungs, mediastinum, bony thorax or soft tissues. XR/XR chest 1V IMPRESSION: Unremarkable examination.
[2024-03-28 22:36] VITALS: BP 146/106; PULSE 83; RESP 20; TEMP 37.2; O2SAT 99; BMI 39.5
[2024-03-28 23:11] LABS: MANUAL DIFF FLAG NO
[2024-03-28 23:13] LABS: Basophils Percent Auto 0.3 % (0-2); Eosinophils Absolute Auto 0.2 X10*3/uL (0.0-0.4); Eosinophils Percent Auto 1.9 % (0-4); Hematocrit 39.4 % (37.0-47.0); Hemoglobin 13.1 g/dl (12.0-16.0); Imm Gran Abs Auto 0.07 X10*3/uL (0.00-0.03); Imm Gran Pct Auto 0.6 % (0.0-0.4); Lymphocytes Absolute Auto 3.5 X10*3/uL (1.2-4.9); Lymphocytes Percent Auto 29.4 % (20-40); Mean Corpuscular HGB Conc 33.2 g/dl (31.0-35.0); Mean Corpuscular Hemoglobin 28.9 pg (27.0-33.0); Mean Platelet Volume 10.8 fL (9.4-12.3); Monocytes Absolute Auto 0.5 X10*3/uL (0.1-1.2); Monocytes Percent Auto 4.4 % (2-11); Neutrophils Absolute Auto 7.6 x10*3/uL (2.0-8.3); Neutrophils Percent Auto 63.4 % (45-73); Platelet Count 278 X10*3/uL (160-400); Red Blood Count 4.53 X10*6/uL (4.20-5.50)
[2024-03-28 23:27] LABS: Alanine Aminotransferase 37 U/L (0-31); Albumin Level 4.2 g/dL (3.5-5.0); Alkaline Phosphatase 65 U/L (39-117); Anion Gap 15 (12-20); Aspartate Amino Transferase 24 U/L (5-31); Bilirubin Total 0.3 mg/dL (0.0-1.0); Blood Urea Nitrogen 14 mg/dL (9-16); Calcium 9.6 mg/dL (8.4-10.2); Carbon Dioxide 23 mmol/L (22-29); Chloride 107 mmol/L (96-108); Estimated Glomerular Filt Rate > 60; Glucose Random 102 mg/dL (60-115); Magnesium 1.8 mg/dL (1.6-2.6); Potassium 3.8 mmol/L (3.3-5.1); Sodium 141 mmol/L (135-145); Total Protein 7.5 g/dL (6.5-8.0)
[2024-03-28 23:35] LABS: Troponin-I High Sensitivity < 2.7 ng/L (<3.5-17.0)
[2024-03-29 00:25] LABS: Influenza A PCR NEGATIVE (Negative); Influenza B PCR NEGATIVE (Negative); Resp Syncy Virus RNA Qual PCR NEGATIVE (Negative); SARS COV2 PCR INHOUSE NEGATIVE (Negative)
--- NOTE | 2024-03-29 01:13 | ED_ITS ---
HPI - General Adult General Chief complaint: Dyspnea Stated complaint: lungs hurt/felt it when working out/nauseous Time Seen by Provider: 03/29/24 01:05 Source: patient Mode of arrival: ambulatory Limitations: no limitations History of Present Illness HPI narrative: Patient is a 33-year-old female who presents to the emergency department for evaluation. Patient reports over the last week she has been experiencing a mild nonproductive cough, rhinorrhea, chest congestion, intermittent chest discomfort exacerbated with deep breathing and movement. She states that she went to the gym today for the 1st time in quite awhile, she was on the treadmill and running at an incline when she began experiencing cough, diffuse anterior chest discomfort. She admits to having a history of mild intermittent asthma, using albuterol inhaler and she feels necessary but did not use it today. She also endorses intermittent nausea over the past week, she does admit that her last menstrual period was 02/24/2024, is uncertain whether she may as she is actively trying to conceive. Currently she denies chest pain, denies fevers, chills, shortness of breath, difficulty breathing, nausea, vomiting, abdominal pain, numbness or tingling of her extremities. She denies any personal history of DVT/PE/malignancy, tobacco usage, use of OCP. Related Data Previous Rx's ?Medication ?Instructions ?Recorded azithromycin 250 mg tablet See Rx Instructions PO .COMPLEX #6 07/25/21 tabs ibuprofen 600 mg tablet 600 mg PO Q6H PRN pain #20 tabs 03/18/23 prednisone 20 mg tablet 60 mg (3 x 20 mg) PO DAILY 3 days 03/18/23 #9 tabs cephalexin 500 mg capsule 500 mg PO QID #28 caps 05/20/23 cyclobenzaprine 10 mg tablet 10 mg PO BEDTIME PRN muscle spasm 07/19/23 #10 tabs ketorolac 10 mg tablet 10 mg PO Q8H 5 days #15 tabs 07/19/23 lidocaine 5 % topical patch 1 patch topical DAILY #15 ea 07/19/23 (Lidoderm) cyclobenzaprine 10 mg tablet 10 mg PO Q8H #20 tabs 08/12/23 ibuprofen 600 mg tablet 600 mg PO Q6H PRN fever or pain 08/12/23 #30 tabs aluminum-mag hydroxide-simethicone 10 ml PO QID PRN indigestion 11/18/23 200 mg-200 mg-20 mg/5 mL oral susp #3,000 mL (Maalox Advanced) Allergies Allergy/AdvReac Type Severity Reaction Status Date / Time banana Allergy Itching Verified 03/28/24 22:40 shellfish derived Allergy Anaphylaxis Verified 03/28/24 22:40 Review of Systems 2 Review of Systems: Yes all other systems are reviewed and are negative [facility] Past Medical History Attestation statement: The following information was validated with the patient. Source: old records reviewed Social History Social History Advance Directives: No Advance Directives Information Provided: No Do you have a plan to hurt others: No Plan Physical Exam ED Vital Signs: Vital Signs - 24 hr 03/28/24 22:36 03/29/24 01:26 Temperature 98.9 F 98.4 F Pulse Rate 83 77 Respiratory Rate 20 16 Blood Pressure 146/106 H 128/86 Pulse Oximetry 99 100 Oxygen Delivery Method Room Air Room Air BMI result Body Mass Index 39.5 Appearance: Alert.?Oriented to person, place and time. No acute distress.?Normal affect. Eyes: Pupils equal, round and reactive to light.? ENT: Pharynx normal.?? Neck: Normal inspection.? Neck supple.?? CVS: Heart sounds normal. Normal heart rate and rhythm.? Pulses normal.?? Respiratory: No respiratory distress.? Lung sounds clear to auscultation bilaterally?? Abdomen: Soft and non-tender. Normoactive bowel sounds. Skin: Skin warm and dry.? Normal skin color.? Extremities: No lower extremity edema.? No calf ttp? Neuro: Moves all extremities spontaneously. Sensation intact bilaterally. Ambulates with normal steady gait. Medical Decision Making Medical Decision Making MDM Narrative: Patient is a 33-year-old female with past medical history of asthma, obesity presenting to emergency department for evaluation of chest discomfort and recent URI symptoms as per HPI. At the time my evaluation she appears overall well, nontoxic, afebrile. She is speaking clear full sentences. Lung sounds are clear bilaterally, no tachypnea hypoxia tachycardia and she is afebrile. Initially arrived hypertensive 146/106, on evaluation her repeat BP is 128/86. Reviewed serum labs, mild leukocytosis of 12.0, no electrolyte derangement, no BRO, transaminases overall unremarkable, hCG negative. PERC negative, unlikely pulmonary embolism. Viral testing is negative. High sensitive troponin below detectable limits, EKG reveals normal sinus rhythm with ventricular rate of 84, QTC 451, no ST elevation, no ST depression, appears unchanged from compared to prior EKG in November of 2023, do not suspect that pain is secondary to ACS. Chest x-ray is without acute pathology, no evidence of pneumonia. Suspect most likely combination of muscular pain, costochondritis secondary to recent URI, exercise-induced asthma. Patient was instructed on appropriate management of the aforementioned conditions including rest over the next few days, acetaminophen/ibuprofen, use of her albuterol inhaler at least 20 minutes prior to exercise routine. Discussed outpatient follow-up with primary care provider. At this time feel that she is stable for discharge. Differential Diagnosis Differential Diagnoses: The differential diagnosis associated with the presentation includes (See narrative above) Admission/Observation Consideration of admission/observation: Escalation of care including admission/observation considered (See narrative above) Lab Data MDM Lab Attestation statement: I reviewed the patient's lab results. (See narrative above) 03/28/24 22:57 03/28/24 22:57 Labs: Lab Results 03/28/24 Range/Units 22:57 WBC 12.0 H (4.8-10.8) X10*3/uL RBC 4.53 (4.20-5.50) X10*6/uL Hgb 13.1 (12.0-16.0) g/dl Hct 39.4 (37.0-47.0) % MCV 87.0 (80.0-98.0) fL MCH 28.9 (27.0-33.0) pg MCHC 33.2 (31.0-35.0) g/dl RDW 13.0 (11.0-16.0) % Plt Count 278 (160-400) X10*3/uL MPV 10.8 (9.4-12.3) fL Immature Gran % (Auto) 0.6 H (0.0-0.4) % Neut % (Auto) 63.4 (45-73) % Lymph % (Auto) 29.4 (20-40) % [place] % (Auto) 4.4 (2-11) % Eos % (Auto) 1.9 (0-4) % Baso % (Auto) 0.3 (0-2) % Lymph # (Auto) 3.5 (1.2-4.9) X10*3/uL [place] # (Auto) 0.5 (0.1-1.2) X10*3/uL Eos # (Auto) 0.2 (0.0-0.4) X10*3/uL Baso # (Auto) 0.0 (0.0-0.2) X10*3/uL Abs Immat Gran (auto) 0.07 H (0.00-0.03) X10*3/uL Absolute Neuts (auto) 7.6 (2.0-8.3) x10*3/uL Absolute Nucleated RBC 0.000 (0.0-0.012) X10*3/uL Nucleated RBC % (auto) 0.0 (0.0-0.2) /100WBC Sodium 141 (135-145) mmol/L Potassium 3.8 (3.3-5.1) mmol/L Chloride 107 (96-108) mmol/L Carbon Dioxide 23 (22-29) mmol/L Anion Gap 15 (12-20) BUN 14 (9-16) mg/dL Creatinine 0.82 (0.5-1.4) mg/dL Estim Creat Clear Calc 117.0 Estimated GFR > 60 Random Glucose 102 (60-115) mg/dL Calcium 9.6 (8.4-10.2) mg/dL Magnesium 1.8 (1.6-2.6) mg/dL Total Bilirubin 0.3 (0.0-1.0) mg/dL AST 24 (5-31) U/L ALT 37 H (0-31) U/L Alkaline Phosphatase 65 (39-117) U/L Troponin I High Sens < 2.7 (<3.5-17.0) ng/L Total Protein 7.5 (6.5-8.0) g/dL Albumin 4.2 (3.5-5.0) g/dL Beta HCG, Quant < 2 mIU/mL Influenza Type A (PCR) NEGATIVE (Negative) Influenza Type B (PCR) NEGATIVE (Negative) RSV RNA Qual (PCR) NEGATIVE (Negative) SARS-CoV-2 RNA (RT-PCR) NEGATIVE (Negative) Independent Interpretation I performed an independent interpretation of an: EKG (See narrative above) and Plain X-Ray (See narrative above) Radiology Impression Discussion of test interpretation with radiology: I have reviewed the radiologist's reading. Radiologist Impression: XR/XR chest 1V IMPRESSION: Unremarkable examination. Independent Historian Clinical information obtained from an independent historian. History obtained from or confirmed by: Spouse Prescription Management I considered prescription management with: Pain Medication Discharge Plan Discharge Clinical Impression: Chest pain Patient Disposition: Home, Self-Care Instructions: Chest Pain (ED) Additional Instructions: As discussed, your testing today was overall normal. Your blood work was reassuring. A troponin was checked which is a marker for damage to heart muscle such as during times of a heart attack this was normal. An EKG was performed which was normal. Chest x-ray was done which does not show any sign of pneumonia or abnormality. Testing today for COVID-19/influenza/RSV were negative. Your test was also negative. You can take ibuprofen 200 mg, 3 tablets (600mg) every 6-8 hours as needed for pain, in addition to Tylenol 500 mg, 2 tablets (1,000mg) every 4-6 hours as needed for pain, but not to exceed 3 doses daily (3,000mg).? Consider using your albuterol inhaler 20 minutes prior to starting your exercise routine, this may help to prevent symptoms of asthma from exercise. Contact your primary care provider to arrange for a follow-up visit. Return back to emergency department any new or worsening symptoms or concerns Prescriptions: No Action azithromycin 250 mg tablet See Rx Instructions .ROUTE .COMPLEX Qty: 6 0RF Rx Instructions: take 500 mg today (day 1), then 250 mg for 4 days (days 2-5) cephalexin 500 mg capsule 500 mg PO QID Qty: 28 0RF cyclobenzaprine 10 mg tablet 10 mg PO Q8H Qty: 20 0RF ibuprofen 600 mg tablet 600 mg PO Q6H PRN (Reason: fever or pain) Qty: 30 0RF alum-mag hydroxide-simeth [Maalox Advanced] 200-200-20 mg/5 mL suspension 10 ml PO QID PRN (Reason: indigestion) Qty: 3000 0RF Rx Instructions: administer between meals and at bedtime ibuprofen 600 mg tablet 600 mg PO Q6H PRN (Reason: pain) Qty: 20 0RF prednisone 20 mg tablet 60 mg PO DAILY 3 Days Qty: 9 0RF lidocaine [Lidoderm] 5 % adhesive patch,medicated 1 patch topical DAILY Qty: 15 0RF Rx Instructions: leave on most painful area for up to 12 hrs cyclobenzaprine 10 mg tablet 10 mg PO BEDTIME PRN (Reason: muscle spasm) Qty: 10 0RF ketorolac 10 mg tablet 10 mg PO Q8H 5 Days Qty: 15 0RF Referrals: Physician,Unknown J [Primary Care Provider] - Print Language: [place]
[2024-03-29 01:26] VITALS: BP 128/86; PULSE 77; RESP 16; TEMP 36.9; O2SAT 100
[2024-03-29 01:37] LABS: HCG Quantitative < 2 mIU/mL
[2024-03-29 02:34] VITALS: BP 122/84; PULSE 73; RESP 18; TEMP 36.7; O2SAT 98
[2024-03-29 02:56] VITALS: BP 122/84; PULSE 73; RESP 18; TEMP 36.7; O2SAT 98
== END 2024-03-29 02:58 | disposition home or self-care (01) ==
PROVIDERS: Nurse Practitioner Family; Emergency Provider Internal Medicine
DX: R07.9 Chest pain, unspecified (principal); R05.9 Cough, unspecified; J34.89 Other specified disorders of nose and nasal sinuses; Z03.818 Encounter for observation for suspected exposure to other biological agents ruled out
CPT/HCPCS: 0241U; 71045; 80053; 83735; 84484; 84702; 85025; 93005; 99283; 99284

== ENCOUNTER → 2024-03-28 22:47 | Outpatient (BNV) | payer OTHER, SELFPAY | PROVIDERS: Emergency Provider Internal Medicine; Visit Provider Internal Medicine | DX: R07.9 Chest pain, unspecified (principal) | CPT/HCPCS: 93010 ==